=== PATIENT | female | born 2000 | race Caucasian/White ===

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

== ENCOUNTER 2021-01-29 19:04 | Emergency (ER) | payer BC, MEDICAID, SELFPAY ==
[2021-01-29 19:13] VITALS: BP 114/73; PULSE 107; RESP 18; TEMP 36.3; O2SAT 96; BMI 27.4
[2021-01-29 21:59] VITALS: BP 113/73; PULSE 106; RESP 16; O2SAT 99
[2021-01-29 22:00] VITALS: BP 113/73; PULSE 118; RESP 16; O2SAT 95
--- NOTE | 2021-01-29 22:25 | USR_ITS ---
PROCEDURE INFORMATION: Exam: US Abdomen, Limited; Right Upper Quadrant Exam date and time: 01/29/2021 10:25 PM Age: 20 years old Clinical indication: Abdominal pain; Additional info: Ruq pain and tenderness TECHNIQUE: Imaging protocol: US abdomen. Real time ultrasound with image documentation. Limited exam focused on the right upper quadrant. COMPARISON: CT chest abd pel w con* 12/19/2019 6:47 PM FINDINGS: Liver: Normal. No masses. Gallbladder: Normal. No gallstones. There is no gallbladder wall thickening. Common bile duct: Common bile duct diameter is 3 mm. Pancreas: Visualized pancreas is unremarkable. Right kidney: Normal. No mass. No hydronephrosis. US/US gall bladder [id number] IMPRESSION: Negative examination.
--- NOTE | 2021-01-29 22:26 | ED_ITS ---
HPI - Abdominal Pain General: Chief Complaint: Abdominal Pain Stated Complaint: Right Side Pain Sever\SOB Time Seen by Provider: 01/29/21 22:00 History of Present Illness: HPI narrative: Patient is a 20-year-old female comes to the ED with abdominal pain. Patient says symptoms started around noon today. Pain is rated a 10 out of 10 is located in the right upper quadrant of her abdomen. Patient says it hurts worse whenever she is moving but if she sits or lays still the pain goes away. Patient does report recently moving to a new home and doing a lot of lifting before onset of pain. Patient says she has a past medical history of anemia. Patient denies any fever, chills, chest pain, shortness of breath, nausea/vomiting, bladder or bowel symptoms. Associated Symptoms: Denies chills, constipation, diarrhea, dysuria, fever(s), hematochezia, hematuria, nausea and vomiting Related Data: Date of Last Menstrual Period: 01/14/21 Review of Systems Const: Denies: fever(s), chills or fatigue Eyes: Denies: change in vision or eye discomfort ENMT: Denies: throat pain, odynophagia, nasal discharge or nasal congestion Card: Denies: chest pain, palpitations, edema, swelling of feet/ankles, dyspnea on exertion or orthopnea Resp: Denies: dyspnea, productive cough or non-productive cough GI: Reports: abdominal pain; Denies: nausea, vomiting, diarrhea, constipation or hematochezia : Denies: flank pain, dysuria or hematuria Musc: Denies: neck pain, back pain or extremity swelling Skin/Breast: Denies: rash or new lesions Neuro: Denies: headache(s), numbness in extremities or weakness in extremities PFS ED PFSH: Social History Smoking and tobacco status: current every day smoker Female Reproductive History: Date of last menstrual period: 01/14/21 Physical Exam Const: COMMON NORMALS: no acute distress, patient oriented x3 and alert GENERAL APPEARANCE: cooperative and comfortable HENMT: COMMON NORMALS: normocephalic HEAD & SCALP: normocephalic MOUTH: Normal oral and palatal mucosa present THROAT: posterior oropharynx normal and uvula midline Eye: COMMON NORMALS: Equal, round and reactive pupils present PUPIL: Yes Equal, round and reactive pupils present Neck/C-Spine: COMMON NORMALS: supple GENERAL: Yes normal visual inspection Resp: COMMON NORMALS: normal respiratory effort, No retractions, No use of accessory muscles and clear to auscultation bilaterally AUSCULTATION: clear to auscultation bilaterally Cardio: COMMON NORMALS: regular rate, regular rhythm, S1 normal heart sound present, S2 normal heart sound present, No gallops present (Cardio), No clicks present (Cardio), No murmurs present (Cardio) and Peripheral pulses 2+ throughout RATE: regular rate RHYTHM: regular rhythm HEART SOUNDS: S1 normal heart sound present and S2 normal heart sound present PERIPHERAL PULSES: Peripheral pulses 2+ throughout GI: COMMON NORMALS: Normal to inspection, nondistended, normoactive bowel soun ds present, Soft to palpation, non-tender and no masses PALPATION: Yes Soft to palpation and Yes Tenderness to palpation present (GI) Details: RUQ : COMMON NORMALS: Yes no CVA tenderness BLADDER/KIDNEY EXAM: Yes no CVA tenderness Back/Pelvis: COMMON NORMALS: no CVA tenderness Extremity: COMMON NORMALS: normal to inspection Neuro: COMMON NORMALS: patient oriented x3 SENSORIUM/ORIENTATION: Yes alert Skin: GENERAL SKIN EXAM: dry skin Course Vital Signs: Vital signs: Vital Signs Temperature 97.3 F L 01/29/21 23:55 Pulse Rate 105 H 01/29/21 23:55 Respiratory Rate 16 01/29/21 23:55 Blood Pressure 113/72 01/29/21 23:55 Pulse Oximetry 99 01/29/21 23:55 MDM - Abdominal Pain MDM Narrative: Medical decision making narrative: Patient is a 20-year-old female comes to the ED with abdominal pain. Symptoms do not worsen after eating. She denies any other symptoms such as fever, chills, nausea/vomiting, bladder or bowel symptoms. Patient did say she recently had to move and did a lot of lifting right before abdominal pain started. Exam shows a nontoxic- appearing patient with some right upper quadrant tenderness. Labs were nonacute unremarkable. Ultrasound of the gallbladder showed no acute findings. Patient was given IV fluids, Zofran, morphine and Toradol to help with symptoms. Patient diagnosed with abdominal pain likely muscular cause and discharged home with a prescription for Celebrex for pain. She was told to follow-up with her PCP in 7 to 10 days for reevaluation. Return to ED precautions given. Patient stood agree with plan. Lab Data: Attestation: I reviewed the patient's lab results. Labs: Lab Results 01/29/21 01/29/21 01/29/21 Range/Units 22:14 22:14 22:14 WBC Cancelled Corrected WBC Cancelled RBC Cancelled Hgb Cancelled Hct Cancelled MCV Cancelled MCH Cancelled MCHC Cancelled RDW Cancelled Plt Count Cancelled MPV Cancelled Gran % Cancelled Neut % (Auto) Cancelled Lymph % (Auto) Cancelled Bandera % (Auto) Cancelled Eos % (Auto) Cancelled Baso % (Auto) Cancelled Neut # (Auto) Cancelled Lymph # (Auto) Cancelled Bandera # (Auto) Cancelled Eos # (Auto) Cancelled Baso # (Auto) Cancelled Absolute Gran (aut o) Cancelled Nucleated RBC % (a uto) Cancelled Nucleated RBCs # Cancelled Sodium 138 (136-145) mmol/L Potassium 3.7 (3.5-5.1) mmol/L Chloride 102 (98-107) mmol/L Carbon Dioxide 24 (22-29) mmol/L Anion Gap 15.7 (5-19) BUN 6 (6-20) mg/dL Creatinine 0.5 (0.5-0.9) mg/dL GFR Calculation 158.9 H (90-130) mL/min Glucose 102 (65-115) mg/dL Calculated Osmolal ity 284 L (285-295) mOsm/k g Calcium 8.7 (8.5-10.5) mg/dL Total Bilirubin 0.5 (0.15-1.2) mg/dL AST 10 (0-32) U/L ALT 16 (0-33) U/L Alkaline Phosphata se 66 (35-105) IU/L Total Protein 7.4 (6.6-8.7) g/dL Albumin 3.7 (3.5-5.2) g/dL Globulin 3.7 (1.3-4.6) g/dL Lipase 11 L (13-60) U/L Ser , Christiana i-Qnt 0.50 mIU/mL Urine Color Yellow (Yellow) Urine Appearance Hazy A (CLEAR) Urine pH 6.5 (5-7) Ur Specific Gravit y 1.010 (1.005-1.030) Urine Protein Neg (Negative) Urine Glucose (UA) Norm (Normal) Urine Ketones 1+ H (Negative) Urine Blood Neg (Negative) Urine Nitrate Negative (Negative) Urine Bilirubin 1+ H (Negative) Urine Urobilinogen 1 H (Negative) mg/dL Ur Leukocyte Mel ase Negative (Negative) Urine RBC 0-4 H (0-2) /hpf Urine WBC 5-10 H (0-5) /hpf Ur Squamous Epith Cells 25-40 H (0-5) /hpf Amorphous Sediment Not Reportable Urine Bacteria 1+ H (NONE) /hpf 01/29/21 Range/Units 23:08 WBC 8.0 Corrected WBC RBC 4.15 Hgb 10.5 L Hct 33.5 L MCV 80.7 L MCH 25.3 L MCHC 31.3 RDW 16.7 H Plt Count 156 MPV 13.8 H Gran % Neut % (Auto) 66.3 Lymph % (Auto) 17.9 Bandera % (Auto) 9.5 Eos % (Auto) 5.0 Baso % (Auto) 0.9 Neut # (Auto) 5.33 Lymph # (Auto) 1.4 L Bandera # (Auto) 0.8 Eos # (Auto) 0.4 Baso # (Auto) 0.1 Absolute Gran (aut o) Nucleated RBC % (a uto) 0 Nucleated RBCs # 0.0 Sodium (136-145) mmol/L Potassium (3.5-5.1) mmol/L Chloride (98-107) mmol/L Carbon Dioxide (22-29) mmol/L Anion Gap (5-19) BUN (6-20) mg/dL Creatinine (0.5-0.9) mg/dL GFR Calculation (90-130) mL/min Glucose (65-115) mg/dL Calculated Osmolal ity (285-295) mOsm/k g Calcium (8.5-10.5) mg/dL Total Bilirubin (0.15-1.2) mg/dL AST (0-32) U/L ALT (0-33) U/L Alkaline Phosphata se (35-105) IU/L Total Protein (6.6-8.7) g/dL Albumin (3.5-5.2) g/dL Globulin (1.3-4.6) g/dL Lipase (13-60) U/L Ser , Christiana i-Qnt mIU/mL Urine Color (Yellow) Urine Appearance (CLEAR) Urine pH (5-7) Ur Specific Gravit y (1.005-1.030) Urine Protein (Negative) Urine Glucose (UA) (Normal) Urine Ketones (Negative) Urine Blood (Negative) Urine Nitrate (Negative) Urine Bilirubin (Negative) Urine Urobilinogen (Negative) mg/dL Ur Leukocyte Mel ase (Negative) Urine RBC (0-2) /hpf Urine WBC (0-5) /hpf Ur Squamous Epith Cells (0-5) /hpf Amorphous Sediment Urine Bacteria (NONE) /hpf Imaging Data ^: US: Attestation: I personally reviewed and interpreted this imaging study as follows: Radiologist's impression: Ultrasound of the gallbladder?prelim report?no acute findings. Normal gallbladder and CBD was normal. Discharge Plan Discharge Patient Disposition: Home Clinical Impression: Abdominal pain Qualifiers: Abdominal location: right upper quadrant Qualified Code(s): R10.11 - Right upper quadrant pain Condition: Stable Prescriptions: New Celebrex 100 mg capsule 100 mg PO BID PRN (Reason: pain) Qty: 20 RF: 0 No Action [id number] 1 mg Tablet PO RF: 0 ibuprofen 800 mg Tablet 800 mg PO TID Qty: 90 RF: 2 DOK 100 mg Capsule 100 mg PO BID Qty: 60 RF: 2 amoxicillin-pot clavulanate 875-125 mg Tablet 1 tab PO BID Qty: 14 RF: 0 Tylenol 325 mg Tablet 325 mg PO QID PRN (Reason: migraines) RF: 0 ibuprofen 600 mg tablet 600 mg PO Q6H PRN (Reason: pain) Qty: 30 RF: 0 Discharge Orders: Discharge ED (Routine); Ordered 01/29/21 Ordered By: Jermain Bauer Discharge Diet: Regular Discharge Activity: Increase activity as tolerated Patient Instructions: Abdominal Pain (ED) Activity Restrictions/Additional Instructions: Follow-up with medical provider as directed in 7-10 days for reevaluation. Take medications as prescribed. Apply cold pack on sore area of abdomen to help with symptoms and rest for the next couple days. Return to the ER or your medical provider if condition worsens. Please read and understand discharge instructions. Thank you for choosing [facility] for your healthcare needs today. Janet gonzalez realize this is an emergency room and that we are providing you with a medical screening exam and this may not be complete and all inclusive of all the testing and or work up that you may need to determine your ailment or severity of your illness. It is very important that you follow up as instructed or that you return to the Emergency Department should you have concerns or if your condition changes or worsens in any way. Coding Level of Care Code ED Liquor Bridge Operator Helper for Chg Fwd Exam Detailed
[2021-01-29 22:31] VITALS: RESP 16; O2SAT 99
[2021-01-29] MEDS: morphine 4 mg/mL SDV 1 mL IVP (22:31)
[2021-01-29] MEDS: ondansetron 2 mg/ML SDV 2 mL 4 MG IVP (22:32)
[2021-01-29] MEDS: sodium chloride 0.9% 500 ML 999 ML IV (22:32)
[2021-01-29 22:48] LABS: Add Urine Culture? No; Add Urine Microscopic? YES; Bacteria Urine 1+ /hpf; Bilirubin Urine 1+ (Negative); Blood Urine Neg (Negative); Glucose Urine UA Norm (Normal); Ketones Urine 1+ (Negative); Leukocyte Esterase Urine Negative (Negative); Nitrate Urine Negative (Negative); Protein Urine Neg (Negative); RBC Urine 0-4 /hpf (0-2); Squamous Epithelial Cell Urine 25-40 /hpf (0-5); Urine Appearance Hazy (CLEAR); Urine Color Yellow (Yellow); Urobilinogen Urine 1 mg/dL (Negative); pH Urine 6.5 (5-7)
[2021-01-29 22:52] LABS: Alanine Aminotransferase 16 U/L (0-33); Albumin Level 3.7 g/dL (3.5-5.2); Alkaline Phosphatase 66 IU/L (35-105); Anion Gap 15.7 (5-19); Aspartate Amino Transferase 10 U/L (0-32); Blood Urea Nitrogen 6 mg/dL (6-20); Calcium 8.7 mg/dL (8.5-10.5); Carbon Dioxide 24 mmol/L (22-29); Chloride 102 mmol/L (98-107); Globulin 3.7 g/dL (1.3-4.6); Glomerular Filtration Rate 158.9 mL/min (90-130); Glucose 102 mg/dL (65-115); Lipase 11 U/L (13-60); Osmolality Calculated 284 mOsm/kg (285-295); Potassium 3.7 mmol/L (3.5-5.1); Sodium 138 mmol/L (136-145); Total Bilirubin 0.5 mg/dL (0.15-1.2); Total Protein 7.4 g/dL (6.6-8.7)
[2021-01-29 23:00] VITALS: BP 108/72; PULSE 110; RESP 16; O2SAT 98
[2021-01-29 23:13] LABS: Basophils # 0.1 10^3/uL (0.0-0.1); Basophils % 0.9 %; Eosinophils # 0.4 10^3/uL (0.0-0.8); Hematocrit 33.5 % (37.0-47.0); Hemoglobin 10.5 g/dL (11.5-15.3); Lymphocytes # 1.4 10^3/uL (1.5-6.5); Lymphocytes % 17.9 %; Mean Corpuscular HGB Conc 31.3 g/dL (30.0-36.0); Mean Corpuscular Hemoglobin 25.3 pg (28.0-34.0); Mean Corpuscular Volume 80.7 fL (81-99); Mean Platelet Volume 13.8 fL (7.4-10.4); Monocytes # 0.8 10^3/uL (0.2-0.9); Monocytes % 9.5 %; Neutrophils # 5.33 10^3/uL (1.8-8.0); Neutrophils % 66.3 %; Nucleated Red Blood Cells % 0 %; Platelet Count 156 10^3/cmm (130-400); Red Blood Count 4.15 10^6/uL (4.1-5.3); Red Cell Distribution Width 16.7 % (12.1-15.1)
[2021-01-29] MEDS: ketorolac 30 mg/mL INJ IVP (23:51)
[2021-01-29 23:55] VITALS: BP 113/72; PULSE 105; RESP 16; TEMP 36.3; O2SAT 99
== END 2021-01-29 23:57 | disposition home or self-care (01) ==
PROVIDERS: Emergency Medicine; Emergency Provider Physician Assistant
DX: R10.11 Right upper quadrant pain (principal); F17.200 Nicotine dependence, unspecified, uncomplicated
CPT/HCPCS: 36415; 76705; 80053; 81001; 83690; 84702; 85025; 96374; 96375; 99284; J1885; J2270; J2405; J7040

== ENCOUNTER 2022-09-04 05:06 | Emergency (ER) | payer MEDICAID, SELFPAY ==
[2022-09-04 05:11] VITALS: BMI 25.7
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
[2022-09-04 06:01] VITALS: BP 149/87; PULSE 105; RESP 16; O2SAT 99
--- NOTE | 2022-09-04 16:21 | DCPLANNER ---
finance manager called patient due to no primary care physician - patient declines at this time.
== END 2022-09-04 05:48 | disposition home or self-care (01) ==
PROVIDERS: Emergency Provider Emergency Medicine
DX: S09.8XXA Other specified injuries of head, initial encounter (principal); F17.210 Nicotine dependence, cigarettes, uncomplicated; Y04.2XXA Assault by strike against or bumped into by another person, initial encounter
CPT/HCPCS: 70450; 99284

== ENCOUNTER 2022-11-15 20:20 | Emergency (ER) | payer MEDICAID, SELFPAY ==
[2022-11-15 20:27] VITALS: BP 112/69; PULSE 122; RESP 18; TEMP 36.8; O2SAT 98; BMI 25.4
--- NOTE | 2022-11-15 21:42 | XRR_ITS ---
PROCEDURE INFORMATION: Exam: XR Chest Exam date and time: 11/15/2022 9:49 PM Age: 22 years old Clinical indication: Other: Tachycardia TECHNIQUE: Imaging protocol: Radiologic exam of the chest. Views: 1 view. COMPARISON: CT chest abdpel w/*[id number] 12/19/2019 6:47 PM FINDINGS: Lungs: Unremarkable. No consolidation. Pleural spaces: Unremarkable. No pleural effusion. No pneumothorax. Heart/Mediastinum: Unremarkable. No cardiomegaly. Bones/joints: Unremarkable. XR/XR chest 1V portable [id number] IMPRESSION: No acute findings.
[2022-11-15 22:06] LABS: Basophils % 0.1 %; Eosinophils # 0.1 10^3/uL (0.0-0.8); Eosinophils % 0.7 %; Hematocrit 40.7 % (37.0-47.0); Hemoglobin 13.1 g/dL (11.5-15.3); Lymphocytes # 1.4 10^3/uL (0.8-4.8); Lymphocytes % 16.3 %; Mean Corpuscular HGB Conc 32.2 g/dL (30.0-36.0); Mean Corpuscular Hemoglobin 27.3 pg (28.0-34.0); Mean Platelet Volume 10.1 fL (7.4-10.4); Monocytes # 1.4 10^3/uL (0.2-0.9); Monocytes % 16.8 %; Neutrophils # 5.51 10^3/uL (1.8-7.7); Neutrophils % 65.6 %; Nucleated Red Blood Cells % 0 %; Platelet Count 165 10^3/cmm (130-400); Red Blood Count 4.79 10^6/uL (4.1-5.3); Red Cell Distribution Width 14.8 % (12.1-15.1); White Blood Count 8.4 10^3/uL (4.0-10.0)
--- NOTE | 2022-11-15 22:15 | ED_ITS ---
HPI - Neuro Symptoms/Deficit General: Chief Complaint: Neuro Symptoms/Deficit Stated Complaint: hands numb, fever, fatigue Time Seen by Provider: 11/15/22 20:25 History of Present Illness: Patient is a 22-year-old female that presents to the emergency department with complaints of tachycardia fevers, body aches. Reports that she also has associated numbness or tingling in the bilateral hands. Onset of symptoms approximately 2 weeks ago. She reports that her heart rate is has been as high as 170s. She denies any chest pain or shortness of breath. Associated symptoms: Deny chest pain, headache(s), malaise, nausea or vomiting Review of Systems General: Reports: 10 or more systems reviewed and unremarkable except in HPI and below Const: Reports: fever(s), chills, body aches and change in appetite; Denies: change in weight, fatigue or malaise Eyes: Denies: change in vision, eye discomfort, eye discharge or eye redness ENMT: Denies: throat pain, enlarged tonsils, odynophagia, hoarseness, ear or mastoid pain, ear discharge, change in hearing, tinnitus, nasal discharge, nasal congestion, post nasal drip or sinus pain Card: Reports: palpitations, lightheadedness and other (Tachycardia); Denies: chest pain, irregular heart rhythm, edema, dyspnea on exertion, orthopnea or leg pain with exertion Resp: Denies: dyspnea, productive cough, non-productive cough, wheezing, stridor or chest congestion GI: Denies: abdominal pain, nausea, vomiting, dysphagia, diarrhea, constipation, bloating, GI cramping or hematochezia : Denies: flank pain, difficulty voiding, dysuria, urinary frequency, urinary urgency, urinary hesitancy, oliguria or hematuria Musc: Denies: neck pain, back pain, extremity pain, joint pain, joint swe lling, joint redness, joint warmth or muscle weakness Skin/Breast: Denies: rash, pruritus, erythema, photosensitivity or new lesions Neuro: Denies: headache(s), numbness in extremities, weakness in extremities, sensory changes, lack of coordination, difficulty walking, frequent falls, dizziness, confusion, Slurred speech present, difficulty communicating thoughts, seizure-like activity or involuntary movements Endo: Denies: polyuria, polydipsia or tired all the time Nemesio/Lymph: Denies: easy bruising or easy bleeding PFS ED PFSH: Medical History Psychiatric care Social History Smoking and tobacco status: current every day smoker Physical Exam 2 Const: COMMON NORMALS: no acute distress, patient oriented x3 and alert GENERAL APPEARANCE: cooperative ORIENTATION/CONSCIOUSNESS: Yes awake, Yes oriented to person, Yes oriented to place and Yes oriented to time HENMT: COMMON NORMALS: normocephalic and atraumatic HEAD & SCALP: normocephalic and atraumatic FACE & SINUS: normal facial exam MOUTH: Normal oral and palatal mucosa present THROAT: posterior oropharynx normal Eye: COMMON NORMALS: Equal, round and reactive pupils present, EOMs intact bilaterally, conjunctivae normal and no scleral icterus GENERAL EYE: appearance normal, both eyes and all related structures ALIGNMENT: Yes alignment normal PERIORBITAL: periorbital findings normal CONJUNCTIVA: Yes conjunctivae normal PUPIL: Yes Equal, round and reactive pupils present Neck/C-Spine: COMMON NORMALS: full ROM GENERAL: Yes normal visual inspection Lymph: LYMPHATIC: no lymphadenopathy noted Chest: COMMONS NORMALS: normal inspection of the chest Breast/axilla inspection: Yes no chest deformity, asymmetry, normal contours, no nodules, masses, tenderness Resp: COMMON NORMALS: normal respiratory effort, No retractions, No use of accessory muscles and clear to auscultation bilaterally EFFORT & INSPECTION: Yes able to speak in complete sentences and Yes symmetric chest movement AUSCULTATION: clear to auscultation bilaterally Cardio: COMMON NORMALS: regular rhythm, S1 normal heart sound present, S2 normal heart sound present and Peripheral pulses 2+ throughout RATE: tachycardic RHYTHM: regular rhythm HEART SOUNDS: S1 normal heart sound present, S2 normal heart sound present and no murmurs PERIPHERAL PULSES: Peripheral pulses 2+ throughout GI: COMMON NORMALS: Normal to inspection, nondistended, normoactive bowel sounds present, Soft to palpation, non-tender and No hepatosplenomegaly present INSPECTION: Yes normal to inspection AUSCULTATION: Yes normoactive bowel sounds PALPATION: Yes Soft to palpation and Yes No hepatosplenomegaly present RECTAL EXAM: deferred Extremity: COMMON NORMALS: normal to inspection GENERAL: Yes normal exam except as noted Neuro: COMMON NORMALS: patient oriented x3 SENSORIUM/ORIENTATION: Yes alert, Yes oriented to person, Yes oriented to place and Yes oriented to time CRANIAL NERVES: Yes CN normal except as noted Psych: COMMON NORMALS: mental status grossly normal, Normal thought process present, cooperative, activity/motor behavior normal, denies homicidal ideation and denies suicidal ideation THOUGHT PROCESS: Normal thought process present Skin: COMMON NORMALS: no rashes or lesions noted, no wounds and turgor normal GENERAL SKIN EXAM: no rashes or lesions noted and turgor normal Course Vital Signs: Vital signs: Vital Signs Temperature 98.2 F 11/15/22 20:27 Pulse Rate 109 H 11/15/22 22:17 Respiratory Rate 17 11/15/22 22:17 Blood Pressure 110/80 11/15/22 22:17 Pulse Oximetry 95 11/15/22 22:17 Oxygen Delivery Me thod Room Air 11/15/22 22:17 MDM - Neuro Symptoms/Deficit Medical Decision Making Patient is a 22-year-old female that presents with complaints of tachycardia, body aches, not feeling well. She reports that she has had fevers and chills. Patient underwent multiple diagnostics including EKG, chest x-ray, laboratory studies and urinalysis. TSH was normal, CBC unremarkable. Chemistry panel revealed no significant electrolyte disturbance but she does have an elevated D-dimer. She denies any chest pain. Patient did test positive for methamphetamine use. She also tested positive for trichomoniasis on her urinalysis. She had to be treated with antibiotics for UTI as well as sexually transmitted infections. She is receiving a one-time dose of Flagyl, azithromycin and Rocephin Patient I had a long discussion about use of methamphetamines and what it does to her cardiovascular system. I have advised her to follow-up with her primary care doctor. Patient is agreeable and is going to discharge home. Lab Data 11/15/22 21:51 11/15/22 21:51 Radiology Impressions Chest X-Ray 11/15/22 21:42 IMPRESSION: No acute findings. Laboratory Results WBC 8.4 10^3/uL (4.0-10.0) 11/15/22 21:51 RBC 4.79 10^6/uL (4.1-5.3) 11/15/22 21:51 Hgb 13.1 g/dL (11.5-15.3) 11/15/22 21:51 Hct 40.7 % (37.0-47.0) 11/15/22 21:51 MCV 85.0 fl (81-99) 11/15/22 21:51 MCH 27.3 pg (28.0-34.0) L 11/15/22 21:51 MCHC 32.2 g/dL (30.0-36.0) 11/15/22 21:51 RDW 14.8 % (12.1-15.1) 11/15/22 21:51 Plt Count 165 10^3/cmm (130-400) 11/15/22 21:51 MPV 10.1 fL (7.4-10.4) 11/15/22 21:51 Neut % (Auto) 65.6 % 11/15/22 21:51 Lymph % (Auto) 16.3 % 11/15/22 21:51 [place] % (Auto) 16.8 % 11/15/22 21:51 Eos % (Auto) 0.7 % 11/15/22 21:51 Baso % (Auto) 0.1 % 11/15/22 21:51 Neut # (Auto) 5.51 10^3/uL (1.8-7.7) 11/15/22 21:51 Lymph # (Auto) 1.4 10^3/uL (0.8-4.8) 11/15/22 21:51 [place] # (Auto) 1.4 10^3/uL (0.2-0.9) H 11/15/22 21:51 Eos # (Auto) 0.1 10^3/uL (0.0-0.8) 11/15/22 21:51 Baso # (Auto) 0.0 10^3/uL (0.0-0.1) 11/15/22 21:51 Nucleated RBC % (auto) 0 % 11/15/22 21:51 Nucleated RBCs # 0.0 /100WBC 11/15/22 21:51 D-Dimer 3.32 ug/mIFEU (0-0.59) H 11/15/22 21:51 Sodium 135 mmol/L (136-145) L 11/15/22 21:51 Potassium 3.8 mmol/L (3.5-5.1) 11/15/22 21:51 Chloride 100 mmol/L (98-107) 11/15/22 21:51 Carbon Dioxide 24 mmol/L (22-29) 11/15/22 21:51 Anion Gap 14.8 (5-19) 11/15/22 21:51 BUN 8 mg/dL (6-20) 11/15/22 21:51 Creatinine 0.8 mg/dL (0.5-0.9) 11/15/22 21:51 GFR Calculation 90.5 mL/min (90-130) 11/15/22 21:51 Glucose 86 mg/dL (65-115) 11/15/22 21:51 Calculated Osmolality 278 mOsm/kg (285-295) L 11/15/22 21:51 Calcium 8.7 mg/dL (8.5-10.5) 11/15/22 21:51 Total Bilirubin 0.5 mg/dL (0.15-1.2) 11/15/22 21:51 AST 12 U/L (0-32) 11/15/22 21:51 ALT 8 U/L (0-33) 11/15/22 21:51 Alkaline Phosphatase 55 U/L (35-105) 11/15/22 21:51 Troponin T Gen 5 ng/L 6 ng/L (0-10) 11/15/22 21:51 Total Protein 7.0 g/dL (6.6-8.7) 11/15/22 21:51 Albumin 3.6 g/dL (3.5-5.2) 11/15/22 21:51 Globulin 3.4 g/dL (1.3-4.6) 11/15/22 21:51 TSH 0.50 uIU/mL (0.27-4.20) 11/15/22 21:51 HCG, Qual Negative (Negative) 11/15/22 21:51 Urine Color Yellow (Yellow) 11/15/22 21:51 Urine Appearance Cloudy (CLEAR) A 11/15/22 21:51 Urine pH 5 (5-7) 11/15/22 21:51 Ur Specific [place] 1.015 (1.005-1.030) 11/15/22 21:51 Urine Protein 1+ (Negative) H 11/15/22 21:51 Urine Glucose (UA) Norm (Normal) 11/15/22 21:51 Urine Ketones 1+ (Negative) H 11/15/22 21:51 Urine Blood 3+ (Negative) H 11/15/22 21:51 Urine Nitrate Negative (Negative) 11/15/22 21:51 Urine Bilirubin 1+ (Negative) H 11/15/22 21:51 Urine Urobilinogen 1 mg/dL (Negative) H 11/15/22 21:51 Ur Leukocyte Esterase 1+ (Negative) H 11/15/22 21:51 Urine RBC 5-10 /hpf (0-2) H 11/15/22 21:51 Urine WBC 5-10 /hpf (0-5) H 11/15/22 21:51 Ur Squamous Epith Cells >100 /hpf (0-5) H 11/15/22 21:51 Amorphous Sediment Not Reportable 11/15/22 21:51 Urine Bacteria 2+ /hpf (NONE) H 11/15/22 21:51 Urine Trichomonas Trace /hpf H 11/15/22 21:51 Urine Opiates Screen Negative ng/mL (Negative) 11/15/22 21:51 Ur Barbiturates Screen Negative ng/mL (Negative) 11/15/22 21:51 Ur Phencyclidine Scrn Negative ng/mL (Negative) 11/15/22 21:51 Ur Amphetamines Screen Positive ng/mL (Negative) H 11/15/22 21:51 U Benzodiazepines Scrn Negative ng/mL (Negative) 11/15/22 21:51 Urine Cocaine Screen Negative ng/mL (Negative) 11/15/22 21:51 U Marijuana (THC) Screen Negative ng/mL (Negative) 11/15/22 21:51 Discharge Plan Discharge Patient Disposition: Home Clinical Impression: Methamphetamine abuse, Urinary tract infection, Sexually transmitted infection Condition: Stable Prescriptions: New cephalexin 500 mg capsule 500 mg PO Q6H 7 Days Qty: 28 0RF No Action [id number] 1 mg Tablet PO ibuprofen 800 mg Tablet 800 mg PO TID Qty: 90 2RF DOK 100 mg Capsule 100 mg PO BID Qty: 60 2RF amoxicillin-pot clavulanate 875-125 mg Tablet 1 tab PO BID Qty: 14 0RF Tylenol 325 mg Tablet 325 mg PO QID PRN (Reason: migraines) ibuprofen 600 mg tablet 600 mg PO Q6H PRN (Reason: pain) Qty: 30 0RF Celebrex 100 mg capsule 100 mg PO BID PRN (Reason: pain) Qty: 20 0RF Discharge Orders: Discharge ED (Routine); Ordered 11/15/22 Ordered By: Gasper Vang Discharge Diet: Advance as tolerated Discharge Activity: Resume usual activity Patient Instructions: Sexually Transmitted Diseases (ED), Safe Sex Practices (ED), Methamphetamine Use Disorder (ED), Pain Management, Urinary Tract I nfection - Women Coding Level of Care Code ED Network Operations Lead for Piper Huynh
[2022-11-15 22:17] VITALS: BP 110/80; PULSE 109; RESP 17; O2SAT 95
[2022-11-15 22:22] LABS: D Dimer 3.32 ug/mIFEU (0-0.59)
[2022-11-15 22:28] LABS: Troponin T (5th) Once 6 ng/L (0-10)
[2022-11-15] MEDS: sodium chloride 0.9% 1,000 ML 999 ML IV (22:28)
[2022-11-15 22:34] LABS: Amphetamines Screen Urine Positive (Negative); Barbiturates Screen Urine Negative (Negative); Benzodiazepines Screen Urine Negative (Negative); Cocaine Screen Urine Negative (Negative); Opiate Screen Urine Negative (Negative); PCP Screen Urine Negative (Negative); THC Screen Urine Negative (Negative)
[2022-11-15 22:36] LABS: Alanine Aminotransferase 8 U/L (0-33); Albumin Level 3.6 g/dL (3.5-5.2); Alkaline Phosphatase 55 U/L (35-105); Anion Gap 14.8 (5-19); Aspartate Amino Transferase 12 U/L (0-32); Blood Urea Nitrogen 8 mg/dL (6-20); Calcium 8.7 mg/dL (8.5-10.5); Carbon Dioxide 24 mmol/L (22-29); Chloride 100 mmol/L (98-107); Globulin 3.4 g/dL (1.3-4.6); Glomerular Filtration Rate 90.5 mL/min (90-130); Glucose 86 mg/dL (65-115); Osmolality Calculated 278 mOsm/kg (285-295); Potassium 3.8 mmol/L (3.5-5.1); Sodium 135 mmol/L (136-145); Total Bilirubin 0.5 mg/dL (0.15-1.2)
[2022-11-15 22:39] LABS: Bilirubin Urine 1+ (Negative); Blood Urine 3+ (Negative); Glucose Urine UA Norm (Normal); Ketones Urine 1+ (Negative); Nitrate Urine Negative (Negative); Protein Urine 1+ (Negative); Specific Gravity, Urine 1.015 (1.005-1.030); Urine Appearance Cloudy (CLEAR); Urine Color Yellow (Yellow); pH Urine 5 (5-7)
[2022-11-15 22:40] LABS: Add Urine Microscopic? YES; Leukocyte Esterase Urine 1+ (Negative); Urobilinogen Urine 1 mg/dL (Negative)
[2022-11-15 22:41] LABS: Squamous Epithelial Cell Urine >100 /hpf (0-5)
[2022-11-15 22:45] LABS: Bacteria Urine 2+ /hpf
[2022-11-15] MEDS: cephALEXin 500 mg Capsule PO (22:46)
[2022-11-15 22:47] LABS: Trichomonas Urine TRACE /hpf
[2022-11-15 22:55] LABS: HCG Qualitative Urine. Negative (Negative)
[2022-11-15] MEDS: cefTRIAXone 500 MG in water for injection-sterile 1 ML IM (23:44)
[2022-11-15] MEDS: azithromycin 250 mg Tablet 1000 MG PO (23:44)
[2022-11-15] MEDS: metroNIDAZOLE 500 MG Tablet 2000 MG PO (23:45)
[2022-11-16 00:02] VITALS: BP 138/74; PULSE 104; O2SAT 99
--- NOTE | 2022-11-21 12:20 | DCPLANNER ---
in flight refueling manager called patient due to no primary care physician - patient declines at this time.
== END 2022-11-16 00:03 | disposition home or self-care (01) ==
PROVIDERS: Emergency Provider Nurse Practitioner
DX: F15.10 Other stimulant abuse, uncomplicated (principal); N39.0 Urinary tract infection, site not specified; A64 Unspecified sexually transmitted disease; F17.210 Nicotine dependence, cigarettes, uncomplicated
CPT/HCPCS: 71045; 80053; 80306; 81001; 81025; 84443; 84484; 85025; 85378; 96360; 96361; 96372; 99284; J0696; J7030; Q0144

== ENCOUNTER 2023-10-04 18:29 | Emergency (ER) | payer MEDICAID, SELFPAY ==
[2023-10-04 18:34] VITALS: BP 83/56; PULSE 135; RESP 16; TEMP 39.3; O2SAT 100; BMI 29.9
[2023-10-04 18:52] VITALS: BP 113/58; PULSE 127; RESP 16; TEMP 39.5; O2SAT 98
--- NOTE | 2023-10-04 19:01 | XRR_ITS ---
PROCEDURE INFORMATION: Exam: XR Chest Exam date and time: 10/04/2023 7:20 PM Age: 23 years old Clinical indication: Patient HX: Fever; Weakness; Body aches TECHNIQUE: Imaging protocol: Radiologic exam of the chest. Views: 1 view. COMPARISON: CR XR chest 1V portable [id number] 11/15/2022 9:49 PM FINDINGS: Lungs: Unremarkable. No consolidation. Pleural spaces: Unremarkable. No pleural effusion. No pneumothorax. Heart/Mediastinum: Unremarkable. No cardiomegaly. Bones/joints: Unremarkable. XR/XR chest 1V portable [id number] IMPRESSION: No acute findings.
--- NOTE | 2023-10-04 19:04 | ED_ITS ---
HPI - Fever 2 General: Chief Complaint: Fever Stated Complaint: Fever, Nausia Time Seen by Provider: 10/04/23 18:46 History of Present Illness: 23-year-old female who has been sick sin ce . This is 1/4-day of fever for her. She notes that her fevers been over 104 at times. She has had a headache. No neck stiffness. No other significant symptoms. No vomiting or diarrhea. No significant cough. No shortness of breath. She has been alternating Tylenol and ibuprofen for temperature. Associated symptoms: Reports headache(s); Deny abdominal pain, flank pain, chest pain, dysuria, nausea or vomiting Review of Systems 2 Const: Reports: fever(s) ENMT: Denies: throat pain Card: Denies: chest pain Resp: Denies: dyspnea, productive cough or non-productive cough GI: Denies: abdominal pain, nausea or vomiting : Denies: flank pain, difficulty voiding or dysuria Musc: Denies: neck pain or back pain Neuro: Reports: headache(s) PFSH ED 2 PFSH: Social History Smoking and tobacco/nicotine status: current every day tobacco/nicotine user Physical Exam 2 Const: COMMON NORMALS: no acute distress GENERAL APPEARANCE: cooperative; not ill appearing and not frail appearing HENMT: COMMON NORMALS: normocephalic, atraumatic and Normal external nose present HEAD & SCALP: normocephalic and atraumatic FACE & SINUS: normal facial exam and face symmetric NOSE: Normal external nose present Eye: COMMON NORMALS: Equal, round and reactive pupils present and EOMs intact bilaterally PUPIL: Yes Equal, round and reactive pupils present Neck/C-Spine: GENERAL: Yes trachea midline Chest: CHEST: Yes Symmetrical chest wall rise Resp: COMMON NORMALS: normal respiratory effort, No retractions, No use of accessory muscles and clear to auscultation bilaterally AUSCULTATION: clear to auscultation bilaterally Cardio: COMMON NORMALS: regular rate and regular rhythm RATE: regular rate RHYTHM: regular rhythm GI: COMMON NORMALS: Normal to inspection, nondistended, normoactive bowel sounds present Extremity: COMMON NORMALS: no pedal edema Neuro: HAYDEE COMA SCALE: document GCS findings [place] coma scale eye opening: Spontaneous [place] coma scale verbal response: Orientated [place] coma scale motor response: Obey commands [place] coma scale total score: 15 S ENSORY EXAM: Yes extremities (intact) Psych: COMMON NORMALS: speech normal SPEECH: Yes normal speech Skin: OTHER: some small skin lesions noted to forearms. Course 2 Vital Signs: Vital signs: Vital Signs Temperature 98.6 F 10/04/23 20:19 Pulse Rate 92 10/05/23 00:07 Respiratory Rate 16 10/05/23 00:07 Blood Pressure 102/60 10/05/23 00:07 Pulse Oximetry 96 10/05/23 00:07 Oxygen Delivery Me thod Room Air 10/04/23 22:42 MDM - Fever Medical Decision Making White blood cell count is 12.5. She was initially significantly tachycardic, improved after fluid bolus. Blood pressure is 110/60. CRP is 177. BMP is nonremarkable. Chest x-ray is negative. Urinalysis shows nitrate positive urinary tract infection with hematuria. CT shows multifocal decreased enhancement the left kidney with perinephric changes consistent with pyelonephritis. She received fluid and a gram of Rocephin here. Her temperature is improved. She will be allowed home on antibiotics to return for any worsening symptoms. Lab Data 10/04/23 19:02 10/04/23 19:02 Radiology Impressions Chest X-Ray 10/04/23 19:01 IMPRESSION: No acute findings. Abdomen/Pelvis CT 10/04/23 19:50 IMPRESSION: Multifocal decreased enhancement of the left kidney with perinephric changes consistent with pyelonephritis. Laboratory Results WBC 12.51 10^3/uL (3.29-11.43) H 10/04/23 19:02 RBC 4.31 10^6/uL (3.85-5.65) 10/04/23 19:02 Hgb 13.40 g/dL (11.27-16.99) 10/04/23 19:02 Hct 39.4 % (36-47) 10/04/23 19:02 MCV 91.4 fl (85-98) 10/04/23 19:02 MCH 31.1 pg (27-33) 10/04/23 19:02 MCHC 34.0 g/dL (30-55) 10/04/23 19:02 RDW 13.0 % (12.1-15.1) 10/04/23 19:02 Plt Count 157 10^3/cmm (157-399) 10/04/23 19:02 MPV 9.9 fL (7.4-10.4) 10/04/23 19:02 Neut % (Auto) 75.9 % 10/04/23 19:02 Lymph % (Auto) 4.3 % 10/04/23 19:02 [place] % (Auto) 18.9 % 10/04/23 19:02 Eos % (Auto) 0.1 % 10/04/23 19:02 Baso % (Auto) 0.2 % 10/04/23 19:02 Neut # (Auto) 9.51 10^3/uL (1.8-7.7) H 10/04/23 19:02 Lymph # (Auto) 0.5 10^3/uL (0.8-4.8) L 10/04/23 19:02 [place] # (Auto) 2.4 10^3/uL (0.2-0.9) H 10/04/23 19:02 Eos # (Auto) 0.0 10^3/uL (0.0-0.8) 10/04/23 19:02 Baso # (Auto) 0.0 10^3/uL (0.0-0.1) 10/04/23 19:02 Nucleated RBC % (auto) 0 % 10/04/23 19:02 Nucleated RBCs # 0.0 /100WBC 10/04/23 19:02 Sodium 139 mmol/L (136-145) 10/04/23 19:02 Potassium 3.8 mmol/L (3.5-5.1) 10/04/23 19:02 Chloride 100 mmol/L (98-107) 10/04/23 19:02 Carbon Dioxide 25 mmol/L (22-29) 10/04/23 19:02 Anion Gap 17.8 (5-19) 10/04/23 19:02 BUN 11 mg/dL (6-20) 10/04/23 19:02 Creatinine 0.9 mg/dL (0.5-0.9) 10/04/23 19:02 GFR Calculation 78.3 mL/min (90-130) L 10/04/23 19:02 Glucose 122 mg/dL (65-115) H 10/04/23 19:02 Calculated Osmolality 289 mOsm/kg (285-295) 10/04/23 19:02 Lactic Acid 1.7 mmol/L (0.5-2.2) 10/04/23 19:02 Calcium 9.2 mg/dL (8.5-10.5) 10/04/23 19:02 Total Bilirubin 0.3 mg/dL (0.15-1.2) 10/04/23 19:02 AST 14 U/L (0-32) 10/04/23 19: ALT 12 U/L (0-33) 10/04/23 19:02 Alkaline Phosphatase 104 U/L (35-105) 10/04/23 19:02 C-Reactive Protein 177.4 mg/L (0.0-4.9) H 10/04/23 19:02 Total Protein 7.8 g/dL (6.6-8.7) 10/04/23 19: Albumin 3.7 g/dL (3.5-5.2) 10/04/23 19: Globulin 4.1 g/dL (1.3-4.6) 10/04/23 19:02 HCG, Qual Negative (Negative) 10/04/23 19: Urine Color Brown (Yellow) A 10/04/23 19:08 Urine Appearance Hazy (CLEAR) A 10/04/23 19:08 Urine pH 5 (5-7) 10/04/23 19:08 Ur Specific [place] 1.010 (1.005-1.030) 10/04/23 19:08 Urine Protein 3+ (Negative) H 10/04/23 19:08 Urine Glucose (UA) Norm (Normal) 10/04/23 19:08 Urine Ketones Negative (Negative) 10/04/23 19: Urine Blood 3+ (Negative) H 10/04/23 19:08 Urine Nitrate Positive (Negative) H 10/04/23 19:08 Urine Bilirubin 1+ (Negative) H 10/04/23 19:08 Urine Urobilinogen 8 mg/dL (Negative) H 10/04/23 19:08 Ur Leukocyte Esterase 2+ (Negative) H 10/04/23 19:08 Urine RBC 80-100 /hpf (0-2) H 10/04/23 19:08 Urine WBC 55-80 /hpf (0-5) H 10/04/23 19:08 Ur Squamous Epith Cells 5-10 /hpf (0-5) H 10/04/23 19:08 Amorphous Sediment 1+ /hpf 10/04/23 19:08 Urine Bacteria 2+ /hpf (NONE) H 10/04/23 19:08 Fine Granular Casts 0-4 /lpf H 10/04/23 19:08 Coarse Granular Casts 0-4 /lpf H 10/04/23 19:08 Urine Opiates Screen Negative ng/mL (Negative) 10/04/23 19:08 Ur Barbiturates Screen Negative ng/mL (Negative) 10/04/23 19:08 Ur Phencyclidine Scrn Negative ng/mL (Negative) 10/04/23 19:08 Ur Amphetamines Screen Positive ng/mL (Negative) H 10/04/23 19:08 U Benzodiazepines Scrn Negative ng/mL (Negative) 10/04/23 19:08 Urine Cocaine Screen Negative ng/mL (Negative) 10/04/23 19:08 U Marijuana (THC) Screen Negative ng/mL (Negative) 10/04/23 19:08 Influenza Type A Ag negative (Negative) 10/04/23 19:15 Influenza Type B Ag negative (Negative) 10/04/23 19:15 SARS-CoV-2 Ag (Rapid) Negative (Negative) 10/04/23 19:15 Group A Strep Rapid Negative (Negative) 10/04/23 19:15 All radiology interpretation(s) finalized by discharge Discharge Plan Discharge Patient Disposition: Home Clinical Impression: Pyelonephritis Condition: Stable Prescriptions: New cefdinir 300 mg capsule 300 mg PO BID 10 Days Qty: 20 0RF ketorolac 10 mg tablet 10 mg PO TID PRN (Reason: pain) Qty: 10 0RF ondansetron 4 mg tablet,disintegrating 4 mg PO Q6H PRN (Reason: nausea and vomiting) Qty: 14 0RF No Action [id number] 1 mg Tablet PO ibuprofen 800 mg Tablet 800 mg PO TID Qty: 90 2RF DOK 100 mg Capsule 100 mg PO BID Qty: 60 2RF amoxicillin-pot clavulanate 875-125 mg Tablet 1 tab PO BID Qty: 14 0RF Tylenol 325 mg Tablet 325 mg PO QID PRN (Reason: migraines) ibuprofen 600 mg tablet 600 mg PO Q6H PRN (Reason: pain) Qty: 30 0RF Celebrex 100 mg capsule 100 mg PO BID PRN (Reason: pain) Qty: 20 0RF Discharge Orders: Discharge ED (Routine); Ordered 10/04/23 Ordered By: Campbell Daniel Patient Instructions: Kidney Infection (ED), Opioid Safety, Pain Management Activity Restrictions/Additional Instructions: Drink plenty of fluids. Antibiotics as directed. Do not take ibuprofen while taking pain medication prescribed. You may take Tylenol. Return for fever despite 2-3 more doses of antibiotics, vomiting liquids or medications, worsening pain despite treatment, other concerning symptoms. See your doctor next week. You need to ensure that your urine sample is retaken and improves. Stand Alone Forms: Work/School Release Coding Level of Care Code ED Environmental Maintenance Worker for Piper Huynh
[2023-10-04 19:28] LABS: Basophils % 0.2 %; Eosinophils % 0.1 %; Hematocrit 39.4 % (36-47); Lymphocytes # 0.5 10^3/uL (0.8-4.8); Lymphocytes % 4.3 %; Mean Corpuscular Hemoglobin 31.1 pg (27-33); Mean Corpuscular Volume 91.4 fl (85-98); Mean Platelet Volume 9.9 fL (7.4-10.4); Monocytes # 2.4 10^3/uL (0.2-0.9); Monocytes % 18.9 %; Neutrophils # 9.51 10^3/uL (1.8-7.7); Neutrophils % 75.9 %; Nucleated Red Blood Cells % 0 %; Platelet Count 157 10^3/cmm (157-399); Red Blood Count 4.31 10^6/uL (3.85-5.65); White Blood Count 12.51 10^3/uL (3.29-11.43)
[2023-10-04] MEDS: ibuprofen 800 mg tablet PO (19:30)
[2023-10-04 19:34] LABS: Amphetamines Screen Urine Positive (Negative); Barbiturates Screen Urine Negative (Negative); Benzodiazepines Screen Urine Negative (Negative); Cocaine Screen Urine Negative (Negative); Opiate Screen Urine Negative (Negative); PCP Screen Urine Negative (Negative); THC Screen Urine Negative (Negative)
[2023-10-04 19:37] VITALS: BP 117/64; PULSE 123; RESP 20; O2SAT 95
[2023-10-04 19:38] LABS: Add Urine Microscopic? YES; Bilirubin Urine 1+ (Negative); Blood Urine 3+ (Negative); Glucose Urine UA Norm (Normal); Ketones Urine Negative (Negative); Leukocyte Esterase Urine 2+ (Negative); Nitrate Urine Positive (Negative); Protein Urine 3+ (Negative); RBC Urine 80-100 /hpf (0-2); Urine Appearance Hazy (CLEAR); Urine Color Brown (Yellow); Urobilinogen Urine 8 mg/dL (Negative); WBC Urine 55-80 /hpf (0-5); pH Urine 5 (5-7)
[2023-10-04 19:39] LABS: Amorphous Sediment Urine 1+ /hpf; Bacteria Urine 2+ /hpf; Coarse Granular Casts Urine 0-4 /lpf; Fine Granular Casts Urine 0-4 /lpf
[2023-10-04 19:43] LABS: HCG, Serum Qual Negative (Negative)
[2023-10-04 19:43] LABS: Add Urine Culture? Yes
[2023-10-04 19:46] LABS: Rapid Strep A Test Negative (Negative)
[2023-10-04 19:47] LABS: Alanine Aminotransferase 12 U/L (0-33); Albumin Level 3.7 g/dL (3.5-5.2); Alkaline Phosphatase 104 U/L (35-105); Anion Gap 17.8 (5-19); Aspartate Amino Transferase 14 U/L (0-32); Blood Urea Nitrogen 11 mg/dL (6-20); C Reactive Protein 177.4 mg/L (0.0-4.9); Calcium 9.2 mg/dL (8.5-10.5); Carbon Dioxide 25 mmol/L (22-29); Chloride 100 mmol/L (98-107); Creatinine Clr Calc Pharmacy 103.4867; Globulin 4.1 g/dL (1.3-4.6); Glomerular Filtration Rate 78.3 mL/min (90-130); Glucose 122 mg/dL (65-115); Osmolality Calculated 289 mOsm/kg (285-295); Potassium 3.8 mmol/L (3.5-5.1); Sodium 139 mmol/L (136-145); Total Bilirubin 0.3 mg/dL (0.15-1.2); Total Protein 7.8 g/dL (6.6-8.7)
[2023-10-04 19:47] LABS: Influenza A by IFA negative (Negative); Influenza B by IFA negative (Negative)
[2023-10-04 19:48] LABS: Lactic Sepsis W/Reflex 1.7 mmol/L (0.5-2.2)
[2023-10-04 19:49] LABS: SARS Covid-2 Antigen Negative (Negative)
--- NOTE | 2023-10-04 19:50 | CTR_ITS ---
PROCEDURE INFORMATION: Exam: CT Abdomen And Pelvis With Contrast Exam date and time: 10/04/2023 7:57 PM Age: 23 years old Clinical indication: Pain and abnormal findings; Abnormal lab test; Abdominal pain; Patient HX: Back pain with fever. Elevated wbc with hematuria and UTI. ; Additional info: Sig back pain fever UTI hematuria TECHNIQUE: Imaging protocol: Computed tomography of the abdomen and pelvis with contrast. Radiation optimization: All CT scans at this facility use at least one of these dose optimization techniques: automated exposure control; mA and/or kV adjustment per patient size (includes targeted exams where dose is matched to clinical indication); or iterative reconstruction. Contrast material: OMNI 350; Contrast volume: 100 ml; Contrast route: INTRAVENOUS (IV); COMPARISON: CT chest abdpel w/*[id number] 12/19/2019 6:47 PM RADIATION DOSE METRICS: Total DLP (mGy-cm): 645.21 FINDINGS: Lungs: The lung bases are clear. Heart: Heart size is within normal limits. There is no pericardial effusion or pericardial thickening. Liver: The liver is normal. No hepatic masses are identified. Gallbladder and bile ducts: The gallbladder is normal. There is no ductal dilatation. Pancreas: The pancreas is normal. Spleen: The spleen is normal. Adrenal glands: The adrenal glands are normal. Kidneys and ureters: Extensive multifocal areas of decreased enhancement throughout the left kidney with mild perinephric changes. Normal enhancement of the right kidney. No evidence of renal calcification. No hydronephrosis. Stomach and bowel: There is no large or small bowel obstruction. There is no evidence of bowel wall thickening. Appendix: A normal appendix is identified. Intraperitoneal space: No inflammatory changes are identified. There is no free fluid or fluid collection seen. There is no pneumoperitoneum. Vasculature: The aorta is normal in course and caliber. No significant atherosclerotic calcifications are present. Lymph nodes: There are no enlarged retroperitoneal or mesenteric lymph nodes. Urinary bladder: The bladder is unremarkable. Reproductive: The uterus is present. Bones/joints: No acute osseous abnormalities are seen. Soft tissues: The soft tissues are within normal limits. Other findings: Via while she is trying to get her sister to go extremities history of sleep lacunar arnoldo get necessitating when it go watchful more episode and then CT/CT abdomen pelvis w con* [id number] IMPRESSION: Multifocal decreased enhancement of the left kidney with perinephric changes consistent with pyelonephritis.
[2023-10-04] MEDS: iohexol 350 mg/mL 500 mL Btl (per mL) IV (19:59)
[2023-10-04] MEDS: cefTRIAXone 1,000 MG in sodium chloride 0.9% (plus) 50 ML 100 MG IV (20:18)
[2023-10-04 20:19] VITALS: BP 109/58; PULSE 112; RESP 20; TEMP 37; O2SAT 97
[2023-10-04] MEDS: sodium chloride 0.9% 1,000 ML 999 ML IV ×2 (21:17→22:39)
[2023-10-04 22:42] VITALS: BP 100/53; PULSE 99; RESP 22; O2SAT 97
[2023-10-04] MEDS: ketorolac 30 mg/mL INJ 15 MG IVP (23:31)
[2023-10-05 00:07] VITALS: BP 102/60; PULSE 92; RESP 16; O2SAT 96
== END 2023-10-05 00:07 | disposition home or self-care (01) ==
PROVIDERS: Emergency Provider Emergency Medicine
DX: N12 Tubulo-interstitial nephritis, not specified as acute or chronic (principal); Z11.52 Encounter for screening for COVID-19; Z72.0 Tobacco use
CPT/HCPCS: 36415; 71045; 74177; 80053; 80306; 81001; 83605; 84703; 85025; 86140; 87040; 87077; 87081; 87086; 87186; 87426; 87804; 87880; 96361; 96365; 96375; 99285; J0696; J1885; J7030; Q9967

== ENCOUNTER → 2024-02-05 10:17 | Outpatient (BNVA) | payer MEDICAID, SELFPAY | PROVIDERS: PCP Nurse Practitioner Family; Visit Provider Nurse Practitioner Family | DX: Z11.3 Encounter for screening for infections with a predominantly sexual mode of transmission (principal); Z13.6 Encounter for screening for cardiovascular disorders; F41.9 Anxiety disorder, unspecified; F32.A Depression, unspecified; E03.9 Hypothyroidism, unspecified; K21.9 Gastro-esophageal reflux disease without esophagitis | CPT/HCPCS: 80053; 80061; 81025; 82306; 82607; 84439; 84443; 85025; 86592; 86705; 86706; 86709; 86803; 87340; 87491; 87591; 87806 ==

== ENCOUNTER 2024-07-15 03:48 | Emergency (ER) | payer MEDICAID, SELFPAY ==
[2024-07-15 04:02] VITALS: BP 152/107; PULSE 101; RESP 18; TEMP 36.5; O2SAT 98; BMI 36.6
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
[2024-07-15 04:20] VITALS: PULSE 105; RESP 20; O2SAT 98
[2024-07-15] MEDS: albuterol 2.5 mg/3 mL Neb INHALATION (04:20)
[2024-07-15] MEDS: ipratropium-albuterol 3 mL Neb INHALATION (04:20)
[2024-07-15 04:27] LABS: ABG PCO2 34.5 mmHg (35-45); ABG PH Result 7.42 (7.35-7.45); Alveolar-Arterial Oxygen Gradi 1.6 mmHg (5-10); Arterial Blood Gas Hematocrit 43.6 % (37-47); Base Excess ABG -1.4 mmol/L (-2.0-2.0); Blood Gas Allen Test Pos; Blood Gas Sample Site Radial, left; Blood Gas Sample Type Arterial; Carboxyhemoglobin 1.6 %THgb (0.4-20.1); HCO3 ABG 22.5 mmol/L (22-26); HGB O2 Sat 95.8 % (95-100); Ionized Calcium Level - ABG 1.2 mmol/L (1.1-1.4); Methemoglobin 1.1 % (0.4-1.5); Oxygen Device ROOM AIR; Oxygen Saturation ABG 98.4; PO2 ABG 95.3 mmHg (80.0-100.0); Potassium Level - ABG 3.8 mmol/L (3.5-5.0); Total Hemoglobin 14.2 g/dL (12-16)
[2024-07-15 04:35] LABS: Basophils % 0.5 %; Eosinophils # 0.1 10^3/uL (0.0-0.8); Hematocrit 42.8 % (36-47); Lymphocytes # 1.3 10^3/uL (0.8-4.8); Lymphocytes % 15.4 %; Mean Corpuscular HGB Conc 32.9 g/dL (30-55); Mean Corpuscular Hemoglobin 30.4 pg (27-33); Mean Corpuscular Volume 92.2 fl (85-98); Mean Platelet Volume 9.8 fL (7.4-10.4); Monocytes # 0.6 10^3/uL (0.2-0.9); Monocytes % 6.6 %; Neutrophils % 75.8 %; Nucleated Red Blood Cells % 0 %; Platelet Count 238 10^3/cmm (157-399); Red Blood Count 4.64 10^6/uL (3.85-5.65); Red Cell Distribution Width 13.2 % (12.1-15.1); White Blood Count 8.58 10^3/uL (3.29-11.43)
[2024-07-15] MEDS: dexamethasone 10 mg/mL INJ IM (04:44)
[2024-07-15 04:52] LABS: Alanine Aminotransferase 15 U/L (0-33); Albumin Level 4.4 g/dL (3.5-5.2); Alkaline Phosphatase 57 U/L (35-105); Aspartate Amino Transferase 21 U/L (0-32); Blood Urea Nitrogen 10 mg/dL (6-20); Calcium 9.1 mg/dL (8.5-10.5); Carbon Dioxide 25 mmol/L (22-29); Chloride 99 mmol/L (98-107); Creatinine Clr Calc Pharmacy 172.0795; Globulin 3.3 g/dL (1.3-4.6); Glucose 114 mg/dL (65-115); Osmolality Calculated 282 mOsm/kg (285-295); Sodium 136 mmol/L (136-145); Total Bilirubin 0.2 mg/dL (0.15-1.2); Total Protein 7.7 g/dL (6.6-8.7)
[2024-07-15 04:54] LABS: HCG Quantitative < 1.00 mIU/mL
[2024-07-15 04:55] LABS: Anion Gap 15.6 (5-19); Potassium 3.6 mmol/L (3.5-5.1)
[2024-07-15 05:14] VITALS: BP 152/107; PULSE 93; O2SAT 100
== END 2024-07-15 05:17 | disposition home or self-care (01) ==
PROVIDERS: Emergency Provider Emergency Medicine; PCP Nurse Practitioner Family
DX: T59.811A Toxic effect of smoke, accidental (unintentional), initial encounter (principal); J45.901 Unspecified asthma with (acute) exacerbation; X58.XXXA Exposure to other specified factors, initial encounter; Z72.0 Tobacco use
CPT/HCPCS: 36415; 36600; 71045; 80051; 80053; 82330; 82805; 84702; 85025; 94640; 96372; 99284; J1100; J3535; J7613

== ENCOUNTER 2025-01-22 21:03 | Emergency (ER) | payer MEDICAID, SELFPAY ==
--- OUTSIDE RECORDS SUMMARY | 2019-06-28 10:45 | XMS_ITS | Continuity of Care Document ---
Author Organization [facility] Address [id number] [address] Phone Care Team Providers Care Dinkey Operator Slate Name Role Phone Unavailable Unavailable Unavailable Allergies, Adverse Reactions, Alerts Substance Reaction Status Criticality No Known Allergies Active No Inform ation Procedures Procedure Date Limited Oral Evaluation Problem Focused EDR Approval Note Advance Directives Directive Yes / No Effective Date File Name No Information Encounters Encounter Description Practice Location Reason(s) For Visit Diagnoses Date Provider Providers Copied on Encounter [facility], [id number] [place] [place], [id number], [place] tel:[phone] [facility] Encounter for dental exam and cleaning w/o abnormal findings No Information Family History Family Member Type Diagnosis Age At Onset No Information Payers Payer name Insurance type Covered green party ID Authoriza tion(s) No Information Social History Type Description Quantity Date Captured Comments Alcohol Use Details No Caffeine Use Details Unknown Tobacco Use Status Smoking Status Unknown if ever smoked 20 Non-Smoking Tobacco Use Details : No Details Available : No Details Available Sex Female Chief Complaint And Reason For Visit No Information Reason For Referral Reason For Referral No Information History Of Present Illness Encounter Date Complaint History Of Prese nt Illness No Information Functional Status Date Functional Assessmen t No Information Instructions Date Instruction Additional Infor mation Lifestyle education Related to D ental Examination Assessments Type Assessment Date No Information Patient Care Teams Name Effective Dates (start - stop) Status Members No Information
--- NOTE | 2025-01-22 21:09 | XRR_ITS ---
PROCEDURE INFORMATION: Exam: XR Chest Exam date and time: 01/22/2025 11:56 PM Age: 24 years old Clinical indication: Shortness of breath; Additional info: SOB TECHNIQUE: Imaging protocol: Radiologic exam of the chest. Views: 1 view. COMPARISON: CR XR chest 1V portable [id number] 07/15/2024 4:11 AM FINDINGS: Lungs: Unremarkable. No consolidation. Pleural spaces: Unremarkable. No pleural effusion. No pneumothorax. Heart/Mediastinum: Unremarkable. No cardiomegaly. Bones/joints: Unremarkable. XR/XR chest 1V portable [id number] IMPRESSION: No acute findings.
[2025-01-22 21:12] VITALS: BP 118/74; PULSE 82; RESP 18; TEMP 36.3; O2SAT 100; BMI 34.7
[2025-01-22 23:24] LABS: Hematocrit 42.1 % (36-47); Hemoglobin 14.10 g/dL (11.27-16.99); Mean Corpuscular HGB Conc 33.5 g/dL (30-55); Mean Corpuscular Hemoglobin 30.1 pg (27-33); Mean Corpuscular Volume 90.0 fl (85-98); Nucleated Red Blood Cells % 0 %; Platelet Count 267 10^3/cmm (157-399); Red Blood Count 4.68 10^6/uL (3.85-5.65); White Blood Count 9.38 10^3/uL (3.29-11.43)
[2025-01-22 23:38] LABS: HCG, Serum Qual Negative (Negative)
[2025-01-22 23:42] LABS: Alanine Aminotransferase 32 U/L (0-33); Albumin Level 4.1 g/dL (3.5-5.2); Alkaline Phosphatase 65 U/L (35-105); Anion Gap 14.7 (5-19); Aspartate Amino Transferase 27 U/L (0-32); Blood Urea Nitrogen 7 mg/dL (6-20); Calcium 9.7 mg/dL (8.5-10.5); Carbon Dioxide 23 mmol/L (22-29); Chloride 104 mmol/L (98-107); Creatinine Clr Calc Pharmacy 142.0943; Globulin 3.4 g/dL (1.3-4.6); Glucose 97 mg/dL (65-115); Lipase 31 U/L (13-60); Osmolality Calculated 284 mOsm/kg (285-295); Potassium 3.7 mmol/L (3.5-5.1); Sodium 138 mmol/L (136-145); Total Protein 7.5 g/dL (6.6-8.7)
[2025-01-22 23:44] VITALS: BP 115/81; PULSE 78; RESP 16; O2SAT 98
[2025-01-22 23:51] LABS: Glucose Urine UA Negative (Normal); Nitrate Urine Negative (Negative); Specific Gravity, Urine 1.022 (1.005-1.030)
[2025-01-22 23:54] LABS: Add Urine Microscopic? YES
--- NOTE | 2025-01-22 23:58 | ED_ITS ---
HPI - Abdominal Pain 2 General: Chief Complaint: Abdominal Pain Stated Complaint: Sob, Pain in sides & back, cold sweats Time Seen by Provider: 01/22/25 21:16 Source: patient Mode of arrival: ambulatory Limitations: no limitations History of Present Illness: Patient is a 24-year-old female who presents to the emergency department with an episode of upper abdominal pain and shortness of breath that began at around 2100 tonight. States that she was not exerting yourself, had the sudden onset of pain and it took her breath away. States it lasted for about an hour then went away suddenly. States she is symptom-free at this time, and that people made her come get checked out. No nausea or vomiting, this pain was not preceded by eating. No back pain. No urinary symptoms or history of kidney stone. Vital stable at this time, patient nontoxic-appearing. MD elicited complaint: abdominal pain Pertinent past history: none Pain Consistency: now resolved Location: Epigastric, LUQ and RUQ Severity: moderate Quality: stabbing Associated Symptoms: Denies bloating, change in stool character, chills, constipation, diarrhea, dysuria, fever(s), hematochezia, nausea and vomiting Related Data Previous Rx's ?Medication ?Instructions ?Recorded famotidine 20 mg tablet 20 mg PO DAILY #90 tabs 01/20 12/13 norgestimate 0.25 mg-ethinyl 1 tab PO DAILY #84 tabs 0 02/05/24 estradiol 0.035 mg tablet (Sprintec (28)) ondansetron 4 mg disintegrating 4 mg PO Q6H PRN nausea and 06/27/24 tablet vomiting #60 tabs albuterol sulfate 90 mcg/actuation 2 inh inhalation Q4 H PRN shortness 07/15/24 aerosol inhaler of breath or wheezing #6.7 g dhara prednisone 20 mg tablet 60 mg (3 x 20 mg) PO DAILY # 20 tabs 07/15/24 cefdinir 300 mg capsule 300 mg PO BID 7 days #14 cap s 01/23/25 Allergies Allergy/AdvReac Type Severity Reaction Status Date / Time No Known Allergies Allergy Verified 07/15/24 04:09 Review of Systems 2 General: Reports: 10 or more systems reviewed and unremarkable except in HPI and below Const: Denies: fever(s), chills, change in appetite, change in weight or diaphoresis ENMT: Denies: throat pain or hoarseness Card: Denies: chest pain, palpitations or lightheadedness Resp: Reports: dyspnea; Denies: productive cough or wheezing GI: Reports: abdominal pain; Denies: nausea, vomiting, diarrhea, constipation, bloating, change in stool character or hematochezia : Denies: flank pain, difficulty voiding, dysuria, urinary frequency or urinary urgency Musc: Denies: neck pain or back pain Skin/Breast: Denies: rash or new lesions Neuro: Denies: headache(s) or dizziness PFSH ED 2 PFSH: Medical History GERD (gastroesophageal reflux disease) History of intravenous drug use Scoliosis Cyst of ovary Anxiety and depression Hypothyroidism Surgical History History of tonsillectomy Social History Smoking and tobacco/nicotine status: current every day tobacco/nicotine user Second hand smoke exposure: No Alcohol intake: current Substance/Drug Use: former Adopted: No Caregiver/support person: No Lives independently: No Household members: significant other Housing: Apartment Highest education level completed: 10th Grade service: No Current occupational status: employed Current occupational exposures/hazards: No Pets and animals: Yes Sexually active: Yes Do you think of yourself as: Straight/Heterosexual Current gender identity: Female Female Reproductive History: Para: 1 Spontaneous abortions: No Physical Exam 2 Const: COMMON NORMALS: no acute distress, average body habitus, patient oriented x3, no limitations, healthy appearing, alert and well nourished G ENERAL APPEARANCE: cooperative and comfortable ORIENTATION/CONSCIOUSNESS: Yes awake HENMT: COMMON NORMALS: normocephalic, atraumatic, hearing grossly normal bilaterally, external ears normal, Normal external nose present, Normal nasal mucous membranes and turbinates present and moist oral mucous membranes HEAD & SCALP: normocephalic and atraumatic NOSE: Normal external nose present and Normal nasal mucous membranes and turbinates present EXTERNAL EAR: Yes external ears normal Eye: COMMON NORMALS: Equal, round and reactive pupils present, EOMs intact bilaterally, conjunctivae normal and normal visual pearson by confrontation C ONJUNCTIVA: Yes conjunctivae normal PUPIL: Yes Equal, round and reactive pupils present Neck/C-Spine: COMMON NORMALS: full ROM, supple, no meningeal signs and no JVD Resp: COMMON NORMALS: normal respiratory effort, No retractions, No use of accessory muscles and clear to auscultation bilaterally AUSCULTATION: clear to auscultation bilaterally, no crackles, no rales, no rhonchi and no wheezes Cardio: COMMON NORMALS: no JVD, regular rate, regular rhythm, S1 normal heart sound present, S2 normal heart sound present, No gallops present (Cardio), No clicks present (Cardio), No murmurs present (Cardio), No rub (Cardio) and Peripheral pulses 2+ throughout RATE: regular rate RHYTHM: regular rhythm HEART SOUNDS: S1 normal heart sound present and S2 normal heart sound present PERIPHERAL PULSES: Peripheral pulses 2+ throughout GI: COMMON NORMALS: Normal to inspection, nondistended, normoactive bowel sounds present, Soft to palpation, non-tender, No hepatosplenomegaly present and no masses AUSCULTATION: Yes normoactive bowel sounds PALPATION: Yes Soft to palpation, No Guarding due to palpation present (GI), No Rigid due to palpation and Yes No hepatosplenomegaly present RECTAL EXAM: deferred Extremity: COMMON NORMALS: normal to inspection and full ROM Neuro: COMMON NORMALS: patient oriented x3, moves all extremities, no focal motor deficits and no sensory deficits noted SENSORIUM/ORIENTATION: Yes alert MENINGEAL SIGNS: Yes no meningeal signs Psych: COMMON NORMALS: mental status grossly normal, cooperative and speech normal SPEECH: Yes normal speech Skin: COMMON NORMALS: no rashes or lesions noted GENERAL SKIN EXAM: no rashes or lesions noted Course 2 Vital Signs: Vital signs: Vital Signs Temperature 97.4 F L 01/22/25 21:12 Pulse Rate 78 01/22/25 23:44 Respiratory Rate 16 01/22/25 23:44 Blood Pressure 115/81 01/22/25 23:44 Pulse Oximetry 98 01/22/25 23:44 Oxygen Delivery Me thod Room Air 01/22/25 23:44 MDM - Abdominal Pain Medical Decision Making Patient presented with upper abdominal pain, had subsided a few hours before being seen here in the ED. Normal physical exam. No pertinent past medical history. No urinary symptoms. Lab work was all normal. Chest x-ray unremarkable. However her UA does show signs of urinary tract infection for which she will be treated with cefdinir. Return precautions given. Lab Data 01/22/25 23:13 01/22/25 23:13 Labs/Radiology: Laboratory Results WBC 9.38 10^3/uL (3.29-11.43) 01/22/25 23:13 RBC 4.68 10^6/uL (3.85-5.65) 01/22/25 23:13 Hgb 14.10 g/dL (11.27-16.99) 01/22/25 23:13 Hct 42.1 % (36-47) 01/22/25 23:13 MCV 90.0 fl (85-98) 01/22/25 23:13 MCH 30.1 pg (27-33) 01/22/25 23:13 MCHC 33.5 g/dL (30-55) 01/22/25 23:13 RDW 14.0 % (12.1-15.1) 01/22/25 23:13 Plt Count 267 10^3/cmm (157-399) 01/22/25 23:13 MPV 9.8 fL (7.4-10.4) 01/22/25 23:13 Neut % (Auto) 74.1 % 01/22/25 23:13 Lymph % (Auto) 17.3 % 01/22/25 23:13 [place] % (Auto) 6.4 % 01/22/25 23:13 Eos % (Auto) 1.4 % 01/22/25 23:13 Baso % (Auto) 0.4 % 01/22/25 23:13 Neut # (Auto) 6.95 10^3/uL (1.8-7.7) 01/22/25 23:13 Lymph # (Auto) 1.6 10^3/uL (0.8-4.8) 01/22/25 23:13 [place] # (Auto) 0.6 10^3/uL (0.2-0.9) 01/22/25 23:13 Eos # (Auto) 0.1 10^3/uL (0.0-0.8) 01/22/25 23:13 Baso # (Auto) 0.0 10^3/uL (0.0-0.1) 01/22/25 23:13 Nucleated RBC % (auto) 0 % 01/22/25 23:13 Nucleated RBCs # 0.0 /100WBC 01/22/25 23:13 Sodium 138 mmol/L (136-145) 01/22/25 23:13 Potassium 3.7 mmol/L (3.5-5.1) 01/22/25 23:13 Chloride 104 mmol/L (98-107) 01/22/25 23:13 Carbon Dioxide 23 mmol/L (22-29) 01/22/25 23:13 Anion Gap 14.7 (5-19) 01/22/25 23:13 BUN 7 mg/dL (6-20) 01/22/25 23:13 Creatinine 0.7 mg/dL (0.5-0.9) 01/22/25 23:13 GFR Calculation 103.7 mL/min (90-130) 01/22/25 23:13 Glucose 97 mg/dL (65-115) 01/22/25 23:13 Calculated Osmolality 284 mOsm/kg (285-295) L 01/22/25 23:13 Calcium 9.7 mg/dL (8.5-10.5) 01/22/25 23:13 Total Bilirubin 0.3 mg/dL (0.15-1.2) 01/22/25 23:13 AST 27 U/L (0-32) 01/22/25 23:13 ALT 32 U/L (0-33) 01/22/25 23:13 Alkaline Phosphatase 65 U/L (35-105) 01/22/25 23:13 Total Protein 7.5 g/dL (6.6-8.7) 01/22/25 23:13 Albumin 4.1 g/dL (3.5-5.2) 01/22/25 23:13 Globulin 3.4 g/dL (1.3-4.6) 01/22/25 23:13 Lipase 31 U/L (13-60) 01/22/25 23:13 HCG, Qual Negative (Negative) 01/22/25 23:13 Urine Color Yellow (Yellow) 01/22/25 23:00 Urine Appearance Cloudy (CLEAR) A 01/22/25 23:00 Urine pH 5.0 (5-7) 01/22/25 23:00 Ur Specific [place] 1.022 (1.005-1.030) 01/22/25 23:00 Urine Protein Negative (Negative) 01/22/25 23:00 Urine Glucose (UA) Negative (Normal) 01/22/25 23:00 Urine Ketones Trace (Negative) 01/22/25 23:00 Urine Blood Negative (Negative) 01/22/25 23:00 Urine Nitrate Negative (Negative) 01/22/25 23:00 Urine Bilirubin Negative (Negative) 01/22/25 23:00 Urine Urobilinogen 1.0 mg/dL (Negative) 01/22/25 23:00 Ur Leukocyte Esterase 2+ (Negative) A 01/22/25 23:00 Urine RBC 6-10 /hpf (0-2) 01/22/25 23:00 Urine WBC 21-50 /hpf (0-5) H 01/22/25 23:00 Ur Squamous Epith Cells 6-10 /hpf (0-5) 01/22/25 23:00 Amorphous Sediment Not Reportable 01/22/25 23:00 Urine Bacteria 4+ /hpf (NONE) H 01/22/25 23:00 Hyaline Casts 4.95 /lpf 01/22/25 23:00 XR interpretation done by ED provider, pending radiology final review ED provider radiology interpretation(s): Negative chest x-ray. Discharge Plan Discharge Patient Disposition: Home Clinical Impression: Urinary tract infection Qualifiers: Urinary tract infection type: acute cystitis Hematuria presence: without hematuria Qualified Code(s): N30.00 - Acute cystitis without hematuria Condition: Stable Prescriptions: New cefdinir 300 mg capsule 300 mg PO BID 7 Days Qty: 14 0RF No Action famotidine 20 mg tablet 20 mg PO DAILY Qty: 90 1RF norgestimate-ethinyl estradiol [Sprintec (28)] 0.25-35 mg-mcg tablet 1 tab PO DAILY Qty: 84 3RF ondansetron 4 mg tablet,disintegrating 4 mg PO Q6H PRN (Reason: nausea and vomiting) Qty: 60 0RF prednisone 20 mg tablet 60 mg PO DAILY Qty: 20 0RF Rx Instructions: 3 tabs (60 mg) x 3 days. 2 tabs (40 mg) x 3 days. 1 tab (20 mg) x 3 days. 1/2 tab (10 mg) x 4 days albuterol sulfate 90 mcg/actuation HFA aerosol inhaler 2 inh inhalation Q4H PRN (Reason: shortness of breath or wheezing) Qty: 6.7 0RF Rx Instructions: Please provide patient with a spacer Discharge Orders: Discharge ED (Routine); Ordered 01/23/25 Ordered By: Sebastian Mott Referrals: Kimber Delgado, [facility] [Primary Care Provider, Family Practice] Patient Instructions: Patient Portal & Patria Instructions Activity Restrictions/Additional Instructions: UTI Discharge Instructions Discharge Instructions: Urinary Tract Infection (UTI) Treated with Cefdinir Diagnosis: Urinary tract infection (UTI) Medication: Cefdinir How to Take Your Medication: - Take cefdinir exactly as prescribed. The usual dose for adults is 300 mg every 12 hours or 600 mg once daily, for a total of 7 days. Do not skip doses and do not stop taking the medication early, even if you start to feel better. Stopping early or missing doses can make the infection harder to treat and may lead to antibiotic resistance. - If you are taking antacids that contain magnesium or aluminum, take cefdinir at least 2 hours before or after the antacid. These antacids can reduce how well cefdinir works. - If you are taking iron supplements or multivitamins with iron, take cefdinir at least 2 hours before or after the supplement. Iron can also reduce the absorption of cefdinir. What to Expect: - It is common to feel better within a few days of starting cefdinir, but it is important to finish the full course of medication. - Diarrhea is a common side effect of antibiotics and usually goes away after you finish the medication. If you develop severe diarrhea, especially if it is watery or bloody, or if you have stomach cramps and fever, contact your healthcare provider right away. This can happen even up to two months after finishing the antibiotic. When to Seek Medical Attention: - If you have any signs of an allergic reaction, such as rash, itching, swelling, trouble breathing, or severe dizziness, seek medical help immediately. - If your symptoms do not improve after a few days, or if they get worse, contact your healthcare provider. - If you develop new symptoms such as back pain, fever, chills, nausea, or vomiting, let your healthcare provider know. These could be signs that the infection is spreading. Other Important Information: - Cefdinir is only effective against bacterial infections. It will not treat viral infections like the common cold. - Take the medication at the same time each day to help you remember. - If you miss a dose, take it as soon as you remember. If it is almost time for your next dose, skip the missed dose?do not take two doses at once. - Drink plenty of fluids unless your healthcare provider tells you otherwise. Follow-Up: - Attend any follow-up appointments as scheduled. - If you have a history of kidney problems, let your healthcare provider know, as your dose may need to be adjusted. Preventing Future UTIs: - Wipe from front to back after using the bathroom. - Urinate after sexual activity. - Drink plenty of water throughout the day. If you have any questions about your medication or your condition, contact your healthcare provider. Print Language: Pashto Coding Level of Care Code ED [facility] for [facility]
[2025-01-23 00:47] VITALS: BP 114/71; PULSE 73; RESP 16; O2SAT 94
== END 2025-01-23 00:23 | disposition home or self-care (01) ==
PROVIDERS: Emergency Medicine; Emergency Provider Physician Assistant; PCP Nurse Practitioner Family
DX: N30.00 Acute cystitis without hematuria (principal); Z72.0 Tobacco use
CPT/HCPCS: 36415; 71045; 80053; 81001; 83690; 84703; 85025; 87086; 99284